=== PATIENT | female | born 1985 | race Caucasian/White ===

== ENCOUNTER 2020-09-24 22:34 | Emergency (ER) | payer OTHER ==
[~2020-09-24] VITALS: Ht 167.6 cm; Wt 95.3 kg
[2020-09-24 22:35] VITALS: BP 143/96
[2020-09-24] MEDS ORDERED: ONDANSETRON 4 MG/2 ML VIAL IVP ONE (22:40)
[2020-09-24] MEDS ORDERED: MORPHINE SULFATE 4 MG/ML SYR IVP ONE (22:40)
--- NOTE | 2020-09-24 22:41 | NUR ---
PT BIBA, BLS. TAKEN TO BED 7
--- NOTE | 2020-09-24 22:41 | NUR ---
to bed 7
--- NOTE | 2020-09-24 23:00 | NUR ---
ISMAEL FROM HOME, PT. IS A 35 Y/O FEMALE THAT CAME INTO ED WITH C/O RIGHT SIDED ABDOMINAL PAIN. PT. STATES IT STARTED THIS MORNINGA AROUND 10 AM. WHEN ASKED TO DESCRIBE PAIN, PT. STATES IT IS NOT CONSTANT BUT "FEELS LIKE SHARP SPIKING PAIN." DENIES DIARRHEA, BUT ADMITS TO N/V. SKIN IS PINK/WARM/DRY; AAOX4 WITH EVEN AND STEADY GAIT; HR EVEN AND REGULAR; PT DENIES ANY FEVER, CP, SOB, OR COUGH AT THIS TIME; VSS; PATIENT POSITIONED FOR COMFORT; HOB ELEVATED; BEDRAILS UP X2; BED DOWN. ER MD MADE AWARE OF PT STATUS. PMH: ASTHMA ALLERGIES: CODEINE
[2020-09-24] MEDS ORDERED: NACL 0.9% 1,000 ML IV ONE (23:15)
[2020-09-24 23:23] LABS: BASOPHILS # (AUTO) 0.1 K/uL (0.00-0.22); BASOPHILS % (AUTO) 0.4 % (0.0-2.0); EOSINOPHILS # (AUTO) 0.2 K/uL (0-0.4); EOSINOPHILS % (AUTO) 1.4 % (0.0-4.0); HEMATOCRIT 37.3 % (36-48); HEMOGLOBIN 12.5 g/dL (12.0-16.0); LYMPHOCYTES # (AUTO) 1.8 K/uL (2.5-16.5); LYMPHOCYTES % (AUTO) 12.6 % (20.5-51.1); MEAN CORPUSCULAR HEMOGLOBIN 29 pg (27-31); MEAN CORPUSCULAR HGB CONC 34 g/dL (33-37); MEAN CORPUSCULAR VOLUME 87.6 fL (80-94); MONOCYTES # (AUTO) 0.7 K/uL (0.8-1.0); MONOCYTES % (AUTO) 5.1 % (1.7-9.3); NEUTROPHILS # (AUTO) 11.3 K/uL (1.8-7.7); NEUTROPHILS % (AUTO) 80.5 % (42.2-75.2); PLATELET COUNT (AUTO) 314 K/uL (140-450); RED BLOOD CELL COUNT(AUTO) 4.25 MIL/uL (4.20-5.40)
[2020-09-24 23:53] LABS: ALBUMIN 3.8 g/dL (3.4-5.0); ANION GAP 13.8 (8-16); CARBON DIOXIDE 26.2 mmol/L (21-32); CREATININE 0.8 mg/dL (0.6-1.3); TOTAL BILIRUBIN 0.6 mg/dL (0.0-1.0)
--- NOTE | 2020-09-25 00:40 | NUR ---
PT. AMBULATED TO BATHROOM WITH EVEN AND STEADY GAIT
--- NOTE | 2020-09-25 00:50 | NUR ---
PT. TAKEN TO CT VIA W/C
[2020-09-25 00:52] LABS: APPEARANCE,URINE CLEAR (CLEAR); BILIRUBIN,URINE NEGATIVE (NEGATIVE); BLOOD, URINE NEGATIVE (NEGATIVE); COLOR,URINE YELLOW (YELLOW); LEUKOCYTE ESTERASE ,URINE NEGATIVE (NEGATIVE); NITRITE, URINE NEGATIVE (NEGATIVE); UGLUCOSE NEGATIVE (NEGATIVE)
[2020-09-25] MEDS ORDERED: IBUP-2213 PO (02:36)
--- NOTE | 2020-09-25 02:48 | NUR ---
IV removed, catheter intact and site benign. Applied folded 4x4 gauze and tape to stop bleeding.
[2020-09-25 02:55] VITALS: BP 109/71
--- NOTE | 2020-09-26 19:34 | NUR ---
LATE ENTRY- 0.9% NS IVF DISCONTINUED AT 0020
== END 2020-09-25 02:55 | disposition home or self-care (01) ==
LOC: MED 22:34
DX: R10.9 Unspecified abdominal pain (principal); D72.829 Elevated white blood cell count, unspecified; J45.909 Unspecified asthma, uncomplicated; Z88.5 Allergy status to narcotic agent
CPT/HCPCS: 36415; 74176; 80053; 81003; 81025; 85025; 96361; 96374; 96375; 99284; J2270; J2405; J7030